=== PATIENT | female | born 1935 | race Two or more races ===

== ENCOUNTER 2017-05-14 08:51 | Day surgery (SDC) | payer OTHER ==
[2017-05-14] MEDS ORDERED: LIDOCAINE HCL 1%, 10 MG/ML (20ML VIAL) ONE (10:35)
[2017-05-14] MEDS ORDERED: VANCOMYCIN 1,000 MG VIAL (RESTRICTED TO ID ONLY) ONE (10:35)
[2017-05-14] MEDS ORDERED: THROMBIN (BOVINE) 5,000 UNIT VIAL TP ONE (10:36)
[2017-05-14] MEDS ORDERED: MIDAZOLAM HCL 2 MG/2 ML SINGLE DOSE VIAL ONE (11:03)
[2017-05-14] MEDS ORDERED: PROPOFOL 20 ML ONE ×2 (11:13)
[2017-05-14] MEDS ORDERED: ceFAZolin SODIUM 1 GM VIAL ONE (11:14)
[2017-05-14] MEDS ORDERED: ceFAZolin SODIUM 1 GM VIAL IVPB ONE (11:14)
[2017-05-14] MEDS ORDERED: LIDOCAINE HCL 1%, 10 MG/ML (50 mL VIAL) IJ ONE (11:22)
--- NOTE | 2017-05-14 12:00 | HP ---
Admitting History and Physical - Admission Chief Complaint: rule out right temporal arteritis Limitations to Obtaining History: No Limitations - Past Medical History Cardiovascular: Yes: HTN ...: No - Smoking History Smoking history: Never smoked Have you smoked in the past 12 months: No - Alcohol/Substance Use Hx Alcohol Use: No Home Medications - Allergies Allergies/Adverse Reactions: Allergies Allergy/AdvReac Type Severity Reaction Status Date / Time Gadolinium-Containing Allergy Verified 05/14/17 09:57 Contrast Medi Iodinated Contrast- Oral and Allergy Verified 05/14/17 09:57 IV Dye moxifloxacin [From Avelox] Allergy Verified 05/14/17 09:57 Penicillins Allergy Verified 05/14/17 09:57 sulfamethoxazole Allergy Verified 05/14/17 09:57 [From Bactrim] trimethoprim [From Bactrim] Allergy Verified 05/14/17 09:57 - Home Medications Home Medications: Ambulatory Orders Ergocalciferol [Vitamin D2] 1 cap PO WEEKLY 05/04/17 Zolpidem Tartrate [Ambien] 2.5 tab PO HS 05/04/17 Budesonide [Pulmicort Flexhaler] 90 mcg IH BID PRN 05/13/17 Cetirizine HCl 10 mg PO HS 05/13/17 Diltiazem HCl [Cartia Xt] 240 mg PO DAILY 05/13/17 Valsartan [Diovan] 320 mg PO DAILY 05/13/17 predniSONE [Deltasone -] 30 mg PO DAILY 05/13/17 Omeprazole 20 mg PO DAILY 05/14/17 Review of Systems - Review of Systems Constitutional: reports: No Symptoms Eyes: reports: No Symptoms HENT: reports: No Symptoms Neck: reports: No Symptoms Cardiovascular: reports: No Symptoms Respiratory: reports: No Symptoms Gastrointestinal: reports: No Symptoms Genitourinary: reports: No Symptoms Breasts: reports: No Symptoms Reported Musculoskeletal: reports: No Symptoms Integumentary: reports: No Symptoms Neurological: reports: No Symptoms Endocrine: reports: No Symptoms Hematology/Lymphatic: reports: No Symptoms Psychiatric: reports: No Symptoms Physical Examination Vital Signs: Vital Signs Temperature 98.2 F 05/14/17 09:56 Pulse Rate 76 05/14/17 09:56 Respiratory Rate 20 05/14/17 09:56 Blood Pressure 151/80 05/14/17 09:56 O2 Sat by Pulse Oximetry (%) 95 05/14/17 09:46 Constitutional: Yes: Well Nourished, No Distress, Calm Eyes: Yes: WNL, Conjunctiva Clear, EOM Intact HENT: Yes: WNL, Atraumatic, Normocephalic Neck: Yes: WNL, Supple, Trachea Midline Cardiovascular: Yes: WNL, Regular Rate and Rhythm Respiratory: Yes: WNL, Regular, CTA Bilaterally Gastrointestinal: Yes: WNL, Normal Bowel Sounds Musculoskeletal: Yes: WNL Extremities: Yes: WNL Edema: No Integumentary: Yes: WNL Neurological: Yes: WNL, Alert, Oriented ...Motor Strength: WNL Psychiatric: Yes: WNL Problem List - Problems (1) Temporal arteritis Code(s): M31.6 - OTHER GIANT CELL ARTERITIS Assessment/Plan right sided headaches. Rule out temporal arteritis 1. for temporal artery biopsy today
--- NOTE | 2017-05-14 12:01 | OP ---
Operative Note - Note: Operative Date: 05/14/17 Pre-Operative Diagnosis: rule out temporal arteritis Operation: right temporal artery biopsy Post-Operative Diagnosis: Same as Pre-op Surgeon: Paul Horner Anesthesia: Fractional Estimated Blood Loss (mls): 20 Operative Report Dictated: Yes
[2017-05-14 12:25] VITALS: TEMP 98
[2017-05-14 15:07] VITALS: BP 131/75; PULSE 85
--- NOTE | 2017-05-15 10:23 | OP ---
DATE OF OPERATION: 05/14/2017 PREOPERATIVE DIAGNOSIS: Rule out temporal arteritis. POSTOPERATIVE DIAGNOSIS: Rule out temporal arteritis. PROCEDURE: Right temporal artery biopsy. SURGEON: Paul Leone DO ANESTHESIA: Fractional. BLOOD LOSS: 20 mL. INDICATIONS: The patient is an 81-year-old female who complains of right-sided headaches. She saw Dr. De Leon from Rheumatology where he found that she had an ESR of greater than 80 and a CRP of 15, and it was decided that he wanted to rule out temporal arteritis. The patient came into ambulatory surgery. The patient was consented for the procedure understanding all of the risks, benefits, and alternatives and was then taken to the operating room. DESCRIPTION OF PROCEDURE: Once in the operative suite, was laid on the operating table in supine manner, and the area of the right temporal region was prepped and draped in a sterile surgical manner. We then went ahead and felt for a pulse, and a 4-cm incision with a skin marker was drawn over the pulse on the temporal artery. We then went ahead and injected 10 mL of lidocaine 1% in the area. We then went ahead and used a No. 15 blade and made an incision. Bovie electrocautery was used to control hemostasis, and we were able to get down to the subcutaneous tissue and down to the fascia. We then used our Metzenbaum scissors and dissected out our temporal artery anteriorly and posteriorly. We had a good segment of about 3 cm of temporal artery dissected out. We can see that it is pulsating. We put a Doppler on it to hear the pulse in the artery as well. We then went ahead and took a 4-0 silk and tied off the artery proximally and distally and then ligated it and sent it off to Pathology. The wound was then well irrigated. Then 3-0 Vicryl was used, and the subcutaneous tissue was approximated in an interrupted manner. The skin was closed with 4-0 Biosyn in subcuticular running fashion. Once completed, we wet and dried the area, and two Steri-Strips were placed. The patient tolerated the procedure with no complication. The patient was transferred to the PACU in stable condition. PAUL LEONE DO NP/[id number]
--- NOTE | 2017-05-15 10:49 | PATH ---
Surgical Pathology Report Patient Name: RICKEY CANO [facility]. Rec. #: [id number] /Age/Gender: 1935 (Age: 81) / F Account: [id number] Location: [facility] SURGICAL Taken: 05/14/2017 Received: 05/14/2017 Reported: 05/15/2017 Physicians: Paul Horner Specimen(s) Received RIGHT TEMPORAL ARTERY BIOPSY Clinical History Temporal arteritis Final Diagnosis TEMPORAL ARTERY, RIGHT, BIOPSY: MUSCULAR ARTERY WITH NO EVIDENCE OF ARTERITIS. MULTIPLE LEVELS EXAMINED. Electronically Signed Irma Harris M.D. Gross Description Received in formalin labeled "right temporal artery biopsy," is a 0.9 cm in length x 0.1 cm in diameter portion of vasculature, consistent with a temporal artery biopsy. The specimen is cross-sectioned and entirely submitted in one cassette. /05/14/201705/14/2017
== END 2017-05-14 13:15 | disposition home or self-care (01) ==
LOC: JASU-SURG 08:51
PROVIDERS: ATTEND Surgery Vascular Surgery
PROC: 03BS0ZX Excision of Right Temporal Artery, Open Approach, Diagnostic (ICD-10-PCS; principal; 2017-05-14 10:00)
DX: M31.6 Other giant cell arteritis (principal)
CPT/HCPCS: 88305-TC